=== PATIENT | male | born 1985 | race Two or more races ===

== ENCOUNTER 2020-03-26 20:21 | Emergency (ER) | payer SELFPAY ==
[~2020-03-26] VITALS: Ht 182.9 cm; Wt 80.0 kg
--- NOTE | 2020-03-26 20:30 | NUR ---
Hard restraints applied to pts 4 limbs by security. Order for restraints initiated as pt is danger to self, others, and environment. Restraint documentation started, pt VSS, pt awake and agitated, + ROM and circulation, needs addressed, education provided to pt on purpose of restraints at this time. Pt uncooperative and rambling
--- NOTE | 2020-03-26 20:45 | NUR ---
safety and comfort assessed, +rom/circulation, no injury noted, pt awake and argumentative, pt states he has to urinate, pt set up with urinal, pt asked RN to leave room to urinate
--- NOTE | 2020-03-26 21:00 | NUR ---
Safety and comfort assessed, pt now resting in bed with eyes closed. When pt addressed, pt becomes argumentative. Pt asked what happened, when pt informed of his behavior requiring restraints, pt became agitated again yelling he "didn't do that." VSS at this time, no sign of injury
[2020-03-26] MEDS ORDERED: ASPIRIN 81 MG TABLET CHEW PO ONE (21:30)
[2020-03-26] MEDS ORDERED: PLEASE ENTER ALLERGIES MC SCH (21:30)
[2020-03-26 21:34] LABS: BASOPHILS # (AUTO) 0.03 x10^3/uL (0-0.1); BASOPHILS % (AUTO) 0 % (0-1); EOSINOPHILS # (AUTO) 0.14 x10^3/uL (0-0.4); EOSINOPHILS % (AUTO) 2 % (1-7); LYMPHOCYTES # (AUTO) 2.19 x10^3/uL (1-3.4); LYMPHOCYTES % (AUTO) 30 % (22-44); MD NO; MEAN CORPUSCULAR HEMOGLOBIN 31.9 pg (27.5-34.5); MEAN CORPUSCULAR HGB CONC 33.4 g/dL (33.2-36.2); MEAN CORPUSCULAR VOLUME 95.5 fL (81-97); MEAN PLATELET VOLUME 6.6 fL (7.4-10.4); MONOCYTES # (AUTO) 0.38 x10^3/uL (0.2-0.8); MONOCYTES % (AUTO) 5 % (2-9); NEUTROPHILS # (AUTO) 4.58 x10^3/uL (1.8-6.8); NEUTROPHILS % (AUTO) 63 % (42-75); PLATELET COUNT 279 x10^3/uL (130-400); RED BLOOD COUNT 4.37 x10^6/uL (4.38-5.82); RED CELL DISTRIBUTION WIDTH 12.9 % (9.4-14.8)
[2020-03-26] MEDS ORDERED: ASPIRIN 81 MG TABLET CHEW ONE (21:42)
[2020-03-26 21:45] LABS: ALBUMIN 3.4 g/dL (3.4-5.0); ANION GAP 6 mmol/L (5-15); CALCIUM 8.1 mg/dL (8.5-10.1); CHLORIDE 110 mmol/L (98-107); CREATININE 0.73 mg/dL (0.7-1.3)
[2020-03-26 21:49] LABS: TROPONIN I < 0.015 ng/mL (0.000-0.045)
[2020-03-26 23:30] VITALS: BP 108/59
--- NOTE | 2020-03-26 23:30 | NUR ---
Security at bedside removing restraints. Pt awake and alert, argumentative but cooperating at this time, pt states he wants to leave
--- NOTE | 2020-03-26 23:52 | NUR ---
pt ambulating in hallways steady without assistance, pt ready for discharge per Dr Alonzo
== END 2020-03-26 23:53 | disposition home or self-care (01) ==
LOC: ED 23:52
DX: R07.89 Other chest pain (principal); F10.220 Alcohol dependence with intoxication, uncomplicated; R00.0 Tachycardia, unspecified; F17.200 Nicotine dependence, unspecified, uncomplicated; Y90.9 Presence of alcohol in blood, level not specified
CPT/HCPCS: 36415; 71045; 80048; 80307; 82040; 84484; 85025; 93005; 99285

== ENCOUNTER 2020-06-13 11:23 | Emergency (ER) | payer MEDICAID ==
[~2020-06-13] VITALS: Ht 180.3 cm; Wt 74.8 kg
[2020-06-13] MEDS ORDERED: PROPARACAINE OPHTH 0.5%, 15ML ONE (11:44)
[2020-06-13] MEDS ORDERED: FLUORESCEIN OPHTHALMIC 1 MG STRIP ONE (11:45)
--- NOTE | 2020-06-13 11:45 | NUR ---
Pt here for what appears to be bilateral conjunctivitis.
--- NOTE | 2020-06-13 12:17 | NUR ---
ERP at bedside
[2020-06-13 12:35] VITALS: BP 123/83
== END 2020-06-13 12:38 | disposition home or self-care (01) ==
LOC: ED 12:34
DX: H10.023 Other mucopurulent conjunctivitis, bilateral (principal); F17.200 Nicotine dependence, unspecified, uncomplicated
CPT/HCPCS: 99283